=== PATIENT | male | born 1990 | race Caucasian/White ===

== ENCOUNTER 2016-11-28 05:21 | Inpatient (IN) | payer BC, OTHER ==
[~2016-11-28] VITALS: Ht 185.4 cm; Wt 104.3 kg
--- NOTE | 2016-11-28 06:55 | NUR ---
PT WAS SUPPOSED TO GO TO [facility] BUT ACCIDENTLY CHECKED IN [facility] AND WAS TAKEN TO [facility]
--- NOTE | 2016-11-28 08:30 | NUR ---
ADMISSION Pt 26 y/o male admitted for heroin methamphetamine GHB dependence. Pt came from [facility] living. Pt alert and oriented to name, place, and time. Perrla. Skin warm and moist to touch. Respirations even and unlabored. Bilateral hand tremors noted. Pt appears disheveled. Perspiration on face noted. Pt with episodes of closing eyes during assessment at times. Skin clear. Initial cows=15. Dr. Velasquez aware of pt with new orders for subutex prn with parameters noted. Pt was oriented to room and to the unit. Bed on lowest position with with side rails x2 up for safety. Call light within reach. Pt states he has no PCP. substance hx: - heroin IV 1gm daily x6 weeks; last used on 11/27/16 0.5gm ; total 7 years of use - methamphetamine smoke 0.5gm daily x6 weeks; last used on 11/27/16 0.5gm; total 5 years of use - GHB oral 1-2 mL ( about 2 times per week); last used 2mL on 11/25/16; total1 year of use medical hx: Pt denies any history of sz and any other medical history tx hx: - [facility] 09/2016 for 30 days - detox 03/2013
[2016-11-28] MEDS ORDERED: MAGNESIUM HYDROXIDE 30 ML LIQUID UDC PO PRN (08:45)
[2016-11-28] MEDS ORDERED: HYDROXYZINE PAMOATE 25 MG CAPSULE PO PRN (08:45)
[2016-11-28] MEDS ORDERED: LOPERAMIDE HCL 2 MG CAPSULE PO PRN ×2 (08:45)
[2016-11-28] MEDS ORDERED: diphenhydrAMINE 50 MG CAPSULE PO PRN (08:45)
[2016-11-28] MEDS ORDERED: ACETAMINOPHEN 325 MG TABLET PO PRN (08:45)
[2016-11-28] MEDS ORDERED: IBUPROFEN 600 MG TABLET PO PRN (08:45)
[2016-11-28] MEDS ORDERED: MIRALAX 17 GM POWD.PACK PO PRN (08:45)
[2016-11-28] MEDS ORDERED: BUPRENORPHINE HCL 2 MG TAB.SUBL SL PRN (08:45)
[2016-11-28] MEDS ORDERED: MAG HYDROX/AL HYDROX/SIMETH 30 ML LIQUID UDC PO PRN (08:45)
[2016-11-28] MEDS ORDERED: ONDANSETRON 4 MG/2 ML VIAL IM PRN (08:45)
[2016-11-28] MEDS ORDERED: ONDANSETRON ODT 4 MG TAB.RAPDIS SL PRN (08:45)
[2016-11-28] MEDS: MULTIVITAMINS,THERAPEUTIC TABLET PO SCH (09:00)
[2016-11-28 09:01] LABS: *AMPHETAMINE, URINE POSITIVE (NEGATIVE); *BARBITURATE, URINE NEGATIVE (NEGATIVE); *CANNABINOID, URINE NEGATIVE (NEGATIVE); *COCCAINE, URINE NEGATIVE (NEGATIVE); *OPIATE, URINE POSITIVE (NEGATIVE); *PHENCYCLIDINE SCREEN,URINE NEGATIVE (NEGATIVE)
[2016-11-28 11:16] LABS: BASOPHILS % (AUTO) 0.6 % (0.0-2.0); EOSINOPHILS # (AUTO) 0.1 K/uL (0.0-0.7); EOSINOPHILS % (AUTO) 1.3 % (0.0-7.0); HEMATOCRIT 44.6 % (40-50); HEMOGLOBIN 15.5 G/DL (14.0-18.0); LYMPHOCYTES # (AUTO) 1.7 K/UL (0.8-4.8); LYMPHOCYTES % (AUTO) 24.6 % (20.5-51.5); MEAN CORPUSCULAR HGB CONC 35 g/dL (32.0-37.0); MEAN CORPUSCULAR VOLUME 88.9 FL (82.0-92.0); MONOCYTES # (AUTO) 0.4 K/UL (0.1-1.30); MONOCYTES % (AUTO) 5.9 % (0.0-11.0); NEUTROPHILS # (AUTO) 4.8 K/UL (1.8-8.9); NEUTROPHILS % (AUTO) 67.6 % (38.5-71.5); PLATELET COUNT (AUTO) 166 K/UL (150-450); RED BLOOD CELL COUNT(AUTO) 5.02 MIL/UL (4.7-6.1); RED CELL DISTRIBUTION WIDTH 14.5 % (11.5-14.5); WHITE BLOOD COUNT (AUTO) 6.9 K/UL (4.0-11.2)
[2016-11-28 11:24] LABS: ETHANOL < 3 MG/DL (0-0)
[2016-11-28 11:38] LABS: ALANINE AMINOTRANSFERASE 40 U/L (16-63); ALBUMIN 4.9 g/dL (3.4-5.0); ALKALINE PHOSPHATASE 46 U/L (50-136); ASPARTATE AMINOTRANSFERASE 77 U/L (15-37); BILIRUBIN,TOTAL 1.4 mg/dL (0.2-1.0); CALCIUM 9.5 mg/dL (8.5-10.1); CARBON DIOXIDE 30 mmol/L (21-32); CHLORIDE 98 mmol/L (98-107); CREATININE 0.9 mg/dL (0.6-1.3); GFR 103 mL/min (>60); GLUCOSE 75 mg/dL (74-106); MAGNESIUM 2.7 mg/dL (1.8-2.4); POTASSIUM 3.3 mmol/L (3.5-5.1); SODIUM SERUM 140 mmol/L (136-145); TOTAL PROTEIN, SERUM 9.3 g/dL (6.4-8.2); UREA NITROGEN, BLOOD 12 mg/dL (7-18)
[2016-11-28 11:46] LABS: THYROID STIMULATING HORMONE 0.668 mIU/mL (0.358-3.740)
[2016-11-28 12:00] VITALS: BP 133/80
[2016-11-28 12:01] LABS: HIV-1 p24 ANTIGEN NON REACTIVE (NONREACTIVE); HIV-1/2 ANTIBODY NON REACTIVE (NONREACTIVE)
--- NOTE | 2016-11-28 13:00 | NUR ---
ADMISSION CLARIFICATION Pt recently left another facility. Pt stated he was at [facility] from 11/23/16-11/25/16. Pt stated he was admitted on a Wednesday night( which he used substances that day), and left Wednesday ( and started using again on Wednesday).
[2016-11-28] MEDS: DICYCLOMINE HCL 20 MG TABLET PO PRN (13:48)
[2016-11-28] MEDS: METHOCARBAMOL 750 MG TABLET PO PRN (13:48)
--- NOTE | 2016-11-28 13:48 | NUR ---
PRN Pt states still feels anxious. vistaril po prn per MD order given and tolerated well.
--- NOTE | 2016-11-28 13:48 | NUR ---
PRN Pt stated has stomach cramps. Bentyl po prn per MD order given and tolerated well.
--- NOTE | 2016-11-28 13:48 | NUR ---
PRN Pt states has body aches 5/10. Robaxin po prn per MD order given and tolerated well.
[2016-11-28] MEDS: CLONIDINE HCL 0.1 MG TABLET PO PRN (13:49)
--- NOTE | 2016-11-28 13:49 | NUR ---
PRN Pt states he feels anxious. Catapres po prn per MD order given and tolerated well.
--- NOTE | 2016-11-28 14:48 | NUR ---
PRN EVAL Pt states body aches 07/28.
--- NOTE | 2016-11-28 14:48 | NUR ---
PRN HUNG Pt denies any stomach cramps at this time.
--- NOTE | 2016-11-28 14:49 | NUR ---
PRN HUNG Pt observed laying on bed in room with eyes closed, but easily arousable to name. No distress noted at this time.
[2016-11-28 16:00] VITALS: BP 131/82
--- NOTE | 2016-11-28 18:00 | NUR ---
END OF SHIFT Pt 26 y/o admitted for heroin methamphetamine GHB dependence. Pt alert and oriented to name, place, and time. Perrla. Skin warm and slightly moist to touch. Respirations even and unlabored. Bilateral hand tremors noted slightly. Pt observed mostly isolative to room with no peer interaction. Pt mostly observed on bed with eyes closed resting, but easily arousable to name. Pt did not attend group activity. Pt medication compliant and tolerated well. No ASE noted. Bed on lowest position with side rails x2 up for safety. Call light wtihin reach. No distress noted at this time.
[2016-11-28] MEDS ORDERED: POTASSIUM CHLORIDE 10 MEQ CAPSULE.SA PO ONE (18:15)
[2016-11-28 20:00] VITALS: BP 120/59
--- NOTE | 2016-11-28 20:17 | NUR ---
START OF SHIFT NOTE Pt is a 26 y/o male admitted on 11/28/16 for Heroin, Meth, and GHB dependence and use. Pt has NKA and denies any PMH. Per day shift nurse pt is not on a taper at this time, but has PRN medications available for any discomfort/distress. Pt received; Robaxin 750 mg PO PRN, Clonidine 0.1 mg PO PRN, Vistaril 25 mg PO PRN, and Bentyl 20 mg PO PRN during the day shift. Last COW: 4 (1600). At this time pt is asleep in his bed with no signs of discomfort/distress noted. Pt's breathing is even and unlabored. All safety measures in place; side rails up x 2, bed locked and in low position, and call light with reach. Will continue to monitor.
[2016-11-28] MEDS: GABAPENTIN 300 MG CAPSULE PO SCH (21:36)
[2016-11-29] VITALS: BP 107/73
[2016-11-29 04:00] VITALS: BP 110/61
--- NOTE | 2016-11-29 07:35 | NUR ---
END OF SHIFT NOTE Pt is a 26 y/o male admitted on 11/28/16 for Heroin, Meth, and GHB dependence and use. Pt has NKA and denies any PMH. Pt is not on a taper at this time, but has PRN medications available for any discomfort/distress. Pt didn't receive any PRNS during the day shift. Last COW: 0 (0400). Pt slept for a total of 10 hours. All safety measures in place; side rails up x 2, bed locked and in low position, and call light with reach. Will continue to monitor.
--- NOTE | 2016-11-29 07:59 | NUR ---
START OF SHIFT Pt 26 y/o male admitted for heroin etoh GHB dependence. Pt received in room with eyes closed resting, but easily arousable to name. Pt alert and oriented to name, place, and time. Perrla. Skin warm and slightly moist to touch. Respirations even and unlabored. Bilateral hand tremors noted slightly. It was reported that pt slept fro 6 hours. Bed on lowest position with side rails x2 up for safety. Call light within reach. No distress noted at this time.
[2016-11-29 08:00] VITALS: BP 131/85
[2016-11-29] MEDS ORDERED: VENLAFAXINE XR 150 MG CAP.SR.24H PO SCH (09:00)
[2016-11-29] MEDS ORDERED: buPROPion XL 150 MG TAB.SR.24H PO SCH (09:00)
[2016-11-29] MEDS ORDERED: TUBERCULIN,PURIF.PROT.DERIV. 5 TU/0.1 ML TEST ID ONE (09:00)
[2016-11-29] MEDS: DICYCLOMINE HCL 20 MG TABLET PO PRN (09:36)
[2016-11-29] MEDS: MULTIVITAMINS,THERAPEUTIC TABLET PO SCH (09:36)
[2016-11-29] MEDS: CLONIDINE HCL 0.1 MG TABLET PO PRN (09:36)
--- NOTE | 2016-11-29 09:36 | NUR ---
PNR Pt states he feels anxious. Catapres po prn per MD order given and tolerated well.
--- NOTE | 2016-11-29 09:36 | NUR ---
PRN Pt with c/o of stomach cramps. Bentyl po prn per MD order given and tolerated well.
[2016-11-29] MEDS: METHOCARBAMOL 750 MG TABLET PO PRN (09:37)
[2016-11-29] MEDS: GABAPENTIN 300 MG CAPSULE PO SCH ×2 (09:37→14:27)
--- NOTE | 2016-11-29 09:37 | NUR ---
PRN Pt stated he has general body aches 01/25. Robaxin po prn per MD order given and tolerated well.
--- NOTE | 2016-11-29 09:37 | NUR ---
PRN Pt with c/o nausea. Zofran po prn per MD order given and tolerated well.
--- NOTE | 2016-11-29 10:08 | NUR ---
PRN Pt stated had episode of loose stool. Imodium 1st dose po prn per MD order given and tolerated well.
--- NOTE | 2016-11-29 10:36 | NUR ---
PRN EVAL Pt denies any stomach discomfort at this time.
--- NOTE | 2016-11-29 10:36 | NUR ---
PRN EVAL Pt observed laying on bed with eyes closed resting, but easily arousable to name.
--- NOTE | 2016-11-29 10:37 | NUR ---
PRN EVAL Pt states pain level 2/10.
--- NOTE | 2016-11-29 10:37 | NUR ---
PRN EVAL Pt states does not feel nauseated at this time.
--- NOTE | 2016-11-29 11:08 | NUR ---
PRN EVAL Pt with no reports of loose stool at this time.
[2016-11-29 11:27] LABS: ALBUMIN 3.9 g/dL (3.4-5.0); BILIRUBIN,DIRECT 0.1 mg/dL (0.0-0.2); BILIRUBIN,TOTAL 0.5 mg/dL (0.2-1.0); CREATININE 1.1 mg/dL (0.6-1.3); MAGNESIUM 2.1 mg/dL (1.8-2.4); POTASSIUM 4.1 mmol/L (3.5-5.1); TOTAL PROTEIN, SERUM 7.8 g/dL (6.4-8.2)
[2016-11-29 12:00] VITALS: BP 110/69
[2016-11-29 14:46] LABS: *AMPHETAMINE, URINE POSITIVE (NEGATIVE); *BARBITURATE, URINE NEGATIVE (NEGATIVE); *CANNABINOID, URINE NEGATIVE (NEGATIVE); *COCCAINE, URINE NEGATIVE (NEGATIVE); *OPIATE, URINE POSITIVE (NEGATIVE); *PHENCYCLIDINE SCREEN,URINE NEGATIVE (NEGATIVE)
[2016-11-29] MEDS ORDERED: VENL150C2 PO (15:11)
[2016-11-29] MEDS ORDERED: Bupropion Hcl PO (15:11)
[2016-11-29] MEDS ORDERED: Gabapentin PO (15:11)
[2016-11-29] MEDS ORDERED: HYDR-3895 PO (15:11)
--- NOTE | 2016-11-29 16:03 | NUR ---
DISCHARGE Pt 26 y/o male admitted for heroin etoh GHB dependence. Pt discharged to [facility] via private transport. Pt alert and oriented to name, place, and time. Perrla. Skin warm and dry to touch. Respirations even and unlabored. VS wnl. All discharge papers, prescriptions, and personal belongings packed in bag. No belongings in cabinet noted. No home medications and verified with pt. No belongings in cassette noted. No withdrawal symptoms noted. No distress noted at this time.
[2016-12-01 05:19] LABS: HCV AB 7.1 s/co ratio (0.0-0.9); HEPATITIS B CORE AB, IgM Negative (Negative); HEPATITIS B SURFACE AG Negative (Negative)
== END 2016-11-29 16:03 | disposition other institution (70) | DRG 895 ==
LOC: ER 05:27 → SRC 06:50
PROVIDERS: ADMIT Internal Medicine; ATTEND Internal Medicine
PROC: HZ2ZZZZ Detoxification Services for Substance Abuse Treatment (ICD-10-PCS; principal; 2016-11-28)
PROC: HZ51ZZZ Individual Psychotherapy for Substance Abuse Treatment, Behavioral (ICD-10-PCS; 2016-11-29)
DX: F15.23 Other stimulant dependence with withdrawal (principal); F11.20 Opioid dependence, uncomplicated; Z81.8 Family history of other mental and behavioral disorders; Z81.1 Family history of alcohol abuse and dependence; Z59.1 Inadequate housing; F17.210 Nicotine dependence, cigarettes, uncomplicated; E87.6 Hypokalemia; F41.9 Anxiety disorder, unspecified; F32.9 Major depressive disorder, single episode, unspecified; R74.0 Nonspecific elevation of levels of transaminase and lactic acid dehydrogenase [LDH]
CPT/HCPCS: 36415; 71010; 80307; 80324; 80361; 83735; 84443; 85025; 86592; 86705; 86803; 87340; 87806; A4663; G6040-TC; Q0162